=== PATIENT | male | born 1965 | race Caucasian/White ===

== ENCOUNTER 2019-06-22 10:08 | Outpatient (CLI) | payer OTHER ==
[2019-06-22] MEDS ORDERED: NONE PER PT (11:06)
== END 2019-06-22 23:59 | disposition home or self-care (01) ==
LOC: STAR 10:08
PROVIDERS: ATTEND Surgery
DX: Z02.9 Encounter for administrative examinations, unspecified (principal)

== ENCOUNTER 2019-07-08 13:00 | Day surgery (SDC) | payer OTHER ==
[~2019-07-08] VITALS: Ht 177.8 cm; Wt 112.2 kg
[~2019-07-08 13:00] MED LIST: NONE PER PT
[2019-07-08] MEDS ORDERED: LACTATED RINGERS 1,000 ML IV SCH ×2 (13:29→18:30)
[2019-07-08] MEDS ORDERED: ACETAMINOPHEN 500 MG TABLET PO ONE (13:30)
[2019-07-08] MEDS ORDERED: SCOPOLAMINE PATCH, 1.5MG PATCH.TD72 TD ONE (13:30)
[2019-07-08] MEDS ORDERED: GABAPENTIN 300 MG CAPSULE PO ONE (13:30)
[2019-07-08 13:53] VITALS: BP 157/95
[2019-07-08] MEDS ORDERED: BUPIVACAINE/PF 0.5% ONE (14:41)
[2019-07-08] MEDS ORDERED: EPINEPHRINE 1 MG/ML, 1ML ONE (14:42)
[2019-07-08] MEDS ORDERED: FENTANYL PF 100 MCG/2ML ONE ×2 (15:04→16:38)
[2019-07-08] MEDS ORDERED: DEXAMETHASONE 4 MG/ML, 1ML ONE (15:04)
[2019-07-08] MEDS ORDERED: PROPOFOL 10 MG/ML, 20ML ONE (15:04)
[2019-07-08] MEDS ORDERED: ROCURONIUM 10 MG/ML,10ML ONE (15:04)
[2019-07-08] MEDS ORDERED: CEFAZOLIN 1,000 MG ONE (15:04)
[2019-07-08] MEDS ORDERED: MIDAZOLAM 1 MG/ML, 2ML ONE (15:04)
[2019-07-08] MEDS ORDERED: SUCCINYLCHOLINE 20 MG/ML, 10ML ONE (15:04)
[2019-07-08] MEDS ORDERED: ONDANSETRON 2MG/ML, 2ML ONE (15:04)
[2019-07-08] MEDS ORDERED: SUGAMMADEX 200 MG/2 ML IVPush ONE (15:04)
[2019-07-08] MEDS ORDERED: MIDAZOLAM 1 MG/ML, 2ML IV PRN (15:30)
[2019-07-08] MEDS ORDERED: EPHEDRINE 50 MG/ML, 1ML IVPush PRN (15:30)
[2019-07-08] MEDS ORDERED: HYDROmorphone 1 MG/ML, 1ML INJ IVPush PRN (15:30)
[2019-07-08] MEDS ORDERED: hydrALAzine 20 MG/ML, 1ML IV PRN (15:30)
[2019-07-08] MEDS ORDERED: MEPERIDINE/PF 25MG/ML,1ML IVPush PRN (15:30)
[2019-07-08] MEDS ORDERED: PROMETHAZINE 25 MG/ML, 1ML IV PRN (15:30)
[2019-07-08] MEDS ORDERED: ONDANSETRON ODT 8 MG PO PRN (15:30)
[2019-07-08] MEDS ORDERED: PROMETHAZINE 12.5 MG SUPP PR PRN (15:30)
[2019-07-08] MEDS ORDERED: ONDANSETRON 2MG/ML, 2ML IV PRN (15:30)
[2019-07-08] MEDS ORDERED: LABETALOL 5MG/ML, 20ML IV PRN (15:30)
[2019-07-08] MEDS ORDERED: ALBUTEROL SULFATE 2.5 MG/3 ML NPPB PRN (15:30)
[2019-07-08] MEDS ORDERED: DIAZEPAM 5 MG/ML, 2ML IVPush PRN (15:30)
[2019-07-08] MEDS ORDERED: OXYcodone 5 MG/5 ML ORAL.SOL UDC ONE (16:39)
[2019-07-08] MEDS: FENTANYL PF 100 MCG/2ML IV PRN ×2 (16:40→17:00)
[2019-07-08] MEDS: OXYcodone 5 MG/5 ML ORAL.SOL UDC PO PRN ×2 (16:40→18:01)
[2019-07-08] MEDS ORDERED: OXYC-302 PO (18:10)
[2019-07-08] MEDS ORDERED: MORPHINE SULFATE 4 MG/ML, 1ML IVPush PRN (18:30)
[2019-07-08] MEDS ORDERED: ONDANSETRON 2MG/ML, 2ML IVPush PRN (18:30)
[2019-07-08] MEDS ORDERED: OXYcodone/APAP 5/325MG TABLET PO PRN (18:30)
== END 2019-07-08 19:22 | disposition home or self-care (01) ==
LOC: OUT 13:00 → 3WST 17:34 → OUT 19:22
PROVIDERS: ATTEND Surgery
DX: K40.90 Unilateral inguinal hernia, without obstruction or gangrene, not specified as recurrent (principal); K42.0 Umbilical hernia with obstruction, without gangrene; E66.9 Obesity, unspecified; Z68.35 Body mass index [BMI] 35.0-35.9, adult; Z79.1 Long term (current) use of non-steroidal anti-inflammatories (NSAID)
CPT/HCPCS: 49587; 49650; C1781; J0171; J0330; J0690; J1100; J2250; J2405; J2704; J3010; J7120; S2900; G0378

== ENCOUNTER 2019-07-14 08:51 | Day surgery (SDC) | payer OTHER ==
[~2019-07-14] VITALS: Ht 177.8 cm; Wt 111.1 kg
[~2019-07-14 08:51] MED LIST changes: +CEFAZOLIN 1,000 MG ONE; +DEXAMETHASONE 4 MG/ML, 1ML ONE; +FENTANYL PF 250 MCG/5ML ONE; +LIDOCAINE 1%-EPI 1:100K, 20ML ONE; +MIDAZOLAM 1 MG/ML, 2ML ONE; +ONDANSETRON 2MG/ML, 2ML ONE; +OXYC-302 PO; +PROPOFOL 10 MG/ML, 20ML ONE; +ROCURONIUM 10MG/ML,5ML ONE; +ROPIvacaine/PF 0.5%, 30 ML ONE; +SUCCINYLCHOLINE 20 MG/ML, 10ML ONE; +SUGAMMADEX 200 MG/2 ML IVPush ONE
[2019-07-14] MEDS ORDERED: LACTATED RINGERS 1,000 ML IV SCH (09:07)
[2019-07-14 09:20] VITALS: BP 153/104
[2019-07-14] MEDS ORDERED: ACETAMINOPHEN 500 MG TABLET PO ONE (09:30)
[2019-07-14] MEDS ORDERED: PLEASE ENTER HEIGHT AND WEIGHT MC SCH (09:30)
[2019-07-14] MEDS ORDERED: GABAPENTIN 300 MG CAPSULE PO ONE (09:30)
[2019-07-14] MEDS ORDERED: PROPOFOL 10 MG/ML, 20ML ONE (09:44)
[2019-07-14] MEDS ORDERED: KETOROLAC 30 MG/1 ML ONE (09:44)
[2019-07-14] MEDS ORDERED: CEFAZOLIN 1,000 MG ONE (09:44)
[2019-07-14] MEDS ORDERED: DEXAMETHASONE 4 MG/ML, 1ML ONE (09:44)
[2019-07-14] MEDS ORDERED: FENTANYL PF 100 MCG/2ML ONE (09:44)
[2019-07-14] MEDS ORDERED: ONDANSETRON 2MG/ML, 2ML ONE (09:44)
[2019-07-14] MEDS ORDERED: MIDAZOLAM 1 MG/ML, 2ML ONE (09:44)
[2019-07-14] MEDS ORDERED: FENTANYL PF 100 MCG/2ML IV PRN (10:00)
[2019-07-14] MEDS ORDERED: MEPERIDINE/PF 25MG/ML,1ML IVPush PRN (10:00)
[2019-07-14] MEDS ORDERED: OXYcodone 5 MG/5 ML ORAL.SOL UDC PO PRN (10:00)
[2019-07-14] MEDS ORDERED: MIDAZOLAM 1 MG/ML, 2ML IV PRN (10:00)
[2019-07-14] MEDS ORDERED: HYDROmorphone 2 MG/ML, 1ML IVPush PRN (10:00)
[2019-07-14] MEDS ORDERED: PROMETHAZINE 25 MG/ML, 1ML IV PRN (10:00)
== END 2019-07-14 12:55 | disposition home or self-care (01) ==
LOC: OUT 08:51
PROVIDERS: ATTEND Orthopaedic Surgery
DX: S83.231A Complex tear of medial meniscus, current injury, right knee, initial encounter (principal); S83.281A Other tear of lateral meniscus, current injury, right knee, initial encounter; M17.11 Unilateral primary osteoarthritis, right knee; M65.861 Other synovitis and tenosynovitis, right lower leg; E66.9 Obesity, unspecified; Z68.35 Body mass index [BMI] 35.0-35.9, adult; Z79.899 Other long term (current) drug therapy; X58.XXXA Exposure to other specified factors, initial encounter; Y93.89 Activity, other specified; Y92.89 Other specified places as the place of occurrence of the external cause; Y99.8 Other external cause status
CPT/HCPCS: 29880; J0690; J1100; J1885; J2250; J2405; J2704; J2795; J3010; J3490; J7120; J0330